=== PATIENT | female | born 1950 | race Caucasian/White ===

== ENCOUNTER 2023-08-18 00:48 | Emergency (ER) | payer MEDICARE, BC, SELFPAY ==
[2023-08-18 00:50] VITALS: BP 148/101
[2023-08-18 01:13] VITALS: BP 145/91
--- NOTE | 2023-08-18 01:30 | ED.GENMED ---
History of Present Illness
General
Chief Complaint: Heart Rate Problem
Time Seen by Provider: 08/18/23 01:24
Travel History
Have you had any contact with someone who has COVID-19?: No
Do you have any symptoms of coronavirus? Fever > 100 degrees, chills, cough, shortness of breath, sore throat, loss of taste or smell, muscle aches, or headache?: No
History of Present Illness
History of Present Illness:
HPI: The patient presents due to palpitations that started around 10 PM (about 3 hours ago). She was going to have an ablation in the past at [facility] for PVCs however after she stopped the verapamil that she was on for PVCs there were no significant
amount of PVCs seen so the ablation was never done. They did give her a prescription for low-dose verapamil to take if she ever has palpitations again. She did take a dose of verapamil tonight.
EXAM:
GENERAL: Well appearing in no distress
HEENT: Moist oral mucosa
CARDIOVASCULAR: No murmurs, normal heart rate, regular rhythm, No chest wall tenderness
PULMONARY: No respiratory distress, breath sounds are clear and equal
ABDOMEN: Soft with no peritoneal signs, no tenderness
NEUROLOGIC: Excellent strength all extremities, no coordination deficits
PSYCHIATRIC: Appropriate mental status, normal insight and judgement
EXTREMITIES: Nontender, no edema, moves all extremities equally
SKIN: No rash, no lesions
TIME OF INITIAL ENCOUNTER: 1:30 AM
NUMBER AND COMPLEXITY OF PROBLEMS ADDRESSED AT THE ENCOUNTER
� Chronic conditions affecting care: Frequent PVCs, high blood pressure, diverticular disease, anxiety
� Acute Exacerbation and/or Progression of Chronic Illness: This is an acute problem
� Differential Diagnosis includes: A-fib PVCs, electrolyte abnormality, anemia, dehydration
AMOUNT AND/OR COMPLEXITY OF DATA TO BE REVIEWED AND ANALYZED
� I performed an independent evaluation of and my interpretation is:
EKG: EKG #1 A-fib with a ventricular rate of 135. EKG #2 sinus rhythm with rate of 75, leftward axis, no acute ST abnormality
CT:
X-rays:
Laboratory Studies: White count 6.1, hemoglobin 13.3, chemistries relatively unremarkable, magnesium 2.3
Other:
� Review of other/old records: I reviewed lab work from January 2023 which was unremarkable
� Clinical information was obtained by an independent historian: None needed
� Prescriptions/Medications Considered but not given:
� Further testing considered but not performed:
RISK OF COMPLICATIONS AND/OR MORBIDITY OR MORTALITY OF PATIENT MANAGEMENT
� Social determinants of health affecting care: Lives at home, she is a nurse practitioner
� Discussion with other providers:
� Escalation of care including admission/observation vs risk of discharge considered: As patient is confirmed to be in atrial fibrillation and given patient's age and female gender, I recommended Eliquis. She has an elevated
[id number] score. She will also talk to her chief medical technologist at [facility] about this. I gave copies of her EKGs to take with her. On 08/20, I called patient to inform her of the low TSH and she has follow-up with [facility].
Phy Exam
Physical Exam
Physical Exam:
See HPI
Course
Orders/Labs/Results
Orders:
Orders
08/18/23 00:57
ECG [Electrocardiogram (*1)] Urgent
Reason for Study: Palpitations
EKG- Treatment ONCE
08/18/23 01:16
Electrocardiogram (*1) Urgent
Reason for Study: QTc Monitoring
EKG- Treatment ONCE
08/18/23 01:34
Basic Metabolic Panel Urgent
Complete Blood Count/With Diff Urgent
Magnesium Urgent
TSH Urgent
Abnormal Lab Results
08/18/23
01:34
RBC 4.11 L 10^6/uL
(4.20-5.40)
Hct 36.6 L %
(37.0-47.0)
MCH 32.4 H pg
(27.0-31.0)
Sodium 134 L mmol/L
(135-145)
Carbon Dioxide 21 L mmol/L
(22-30)
BUN 21 H mg/dl
(7-17)
Creatinine 0.5 L mg/dL
(0.6-1.0)
Glucose 102 H mg/dl
(70-99)
TSH 0.17 L uIU/ml
(0.47-4.68)
08/18/23 01:34
08/18/23 01:34
Vital Signs
Initial and Last Documented VS:
Initial Vital Signs
Temp Pulse Resp BP Pulse Ox
97.8 F 71 16 148/101 100
08/18/23 00:50 08/18/23 00:50 08/18/23 00:50 08/18/23 00:50 08/18/23 00:50
Last Documented Vital Signs
Temp Pulse Resp BP Pulse Ox
97.8 F 70 17 128/85 97
08/18/23 00:50 08/18/23 02:45 08/18/23 02:45 08/18/23 02:00 08/18/23 02:45
*Critical Care Note
Total Time (30-74mins, 75-104mins- exclusive of procedures): Not Applicable
ED Attending Note
-
Portions of this chart may have been created with voice recognition software.� Occasional wrong word or��sound alike� substitutions may have occurred due to the inherent limitations of voice recognition software.
Discharge Plan
Departure
Patient Disposition: Home (Routine Discharge)
Date of Disposition: 08/18/23
Time of Disposition: 02:36
Patient with high blood pressure during this ER visit?: Yes
Discharge Problem:
Atrial fibrillation
Instructions: Atrial Fibrillation (DC)
Prescriptions:
New
Eliquis 5 mg tablet
5 mg PO BID Qty: 60 0RF
No Action
amlodipine 5 mg tablet
5 mg PO DAILY Qty: 14 0RF
Referrals:
Kyaw Gama MD [Family Provider] -
Activity Restrictions/Additional Instructions:
Your initial EKG clearly shows signs of atrial fibrillation. Without any other intervention (other than the verapamil that you took earlier), you converted to a sinus rhythm. Basic blood work is unremarkable. Return here if worse. Follow-up with
your cardiologists.
Interventions
Interventions:
*Risk Screen - Suicide Last Done: 08/18/23 00:50
*General Assessment Last Done: 08/18/23 02:00
*Neglect/Abuse Screening Last Done: 08/18/23 00:50
ED- Fall Risk Assessment Last Done: 08/18/23 01:30
*ED COVID-19 Vaccine History Last Done: 08/18/23 00:50
*Nursing Disposition Last Done: 08/18/23 02:52
ED- Cardiac Assessment Last Done: 08/18/23 01:30
ED- Pulmonary Assessment Last Done: 08/18/23 01:30
Discharge Date and Time
Discharge Date/Time: 08/18/23 02:53
Print Language: [email or web address]
[2023-08-18 01:41] LABS: % Basophils 0.7 % (0-2); % Eosinophils 2.6 % (0-6); % Immature Granulocytes 0.2 % (0-0.5); % Lymphocytes 27.9 % (20.5-51.1); % Monocytes 6.7 % (1.7-9.3); % Neutrophils 61.9 % (42.2-75.2); Absolute Eosinophils 0.2 10^3/uL (0-0.7); Absolute Lymphocytes 1.7 10^3/uL (1.2-3.4); Absolute Monocytes 0.4 10^3/uL (0.1-0.6); Absolute Neutrophils 3.8 10^3/uL (1.4-6.5); Hematocrit 36.6 % (37.0-47.0); Hemoglobin 13.3 g/dL (12.0-16.0); Mean Corp Hgb Conc. 36.3 g/dL (33.0-37.0); Mean Corpuscular Hgb 32.4 pg (27.0-31.0); Mean Corpuscular Volume 89.1 fL (81.0-99.0); Mean Platelet Volume 8.9 fL (7.4-10.4); Nucleated Red Blood Cells % 0 %; Platelet Count 351 10^3/uL (130-400); Red Blood Cell Count 4.11 10^6/uL (4.20-5.40); Red Cell Dist. Width 12.4 % (11.5-14.5); White Blood Cell Count 6.1 10^3/uL (4.8-10.8)
[2023-08-18 02:00] VITALS: BP 128/85
[2023-08-18 02:05] LABS: Blood Urea Nitrogen 21 mg/dl (7-17); Calcium 10.1 mg/dl (8.4-10.2); Carbon Dioxide 21 mmol/L (22-30); Chloride 101 mmol/L (98-107); Glucose 102 mg/dl (70-99); Magnesium 2.3 mg/dl (1.6-2.3); Sodium 134 mmol/L (135-145); eGFR > 60.00
[2023-08-18 03:03] LABS: TSH 0.17 uIU/ml (0.47-4.68)
== END 2023-08-18 02:53 | disposition home or self-care (01) ==
LOC: EMR 00:48
PROVIDERS: EMERGENCY PHYSICIAN Emergency Medicine; FAMILY PHYSICIAN Family Medicine
DX: I48.91 Unspecified atrial fibrillation (principal); R03.0 Elevated blood-pressure reading, without diagnosis of hypertension; Z79.01 Long term (current) use of anticoagulants; Z88.1 Allergy status to other antibiotic agents
CPT/HCPCS: 99284; 80048; 83735; 84443; 85025; 93005

== ENCOUNTER → 2023-08-23 08:13 | Outpatient (REF) | payer MEDICARE, BC, SELFPAY ==
[2023-08-24 16:23] LABS: TSH Receptor Antibody <1.10 IU/L (<=1.75)
== END ==
LOC: REG 08:13
PROVIDERS: ATTENDING PHYSICIAN Family Medicine
DX: I48.91 Unspecified atrial fibrillation (principal); R79.89 Other specified abnormal findings of blood chemistry
CPT/HCPCS: 36415; 83520; 84439

== ENCOUNTER → 2024-07-03 13:36 | Outpatient (REF) | payer MEDICARE, BC, SELFPAY | LOC: HWRAD 13:36 | PROVIDERS: ATTENDING PHYSICIAN Family Medicine | DX: Z78.0 Asymptomatic menopausal state (principal); Z12.31 Encounter for screening mammogram for malignant neoplasm of breast | CPT/HCPCS: 77063; 77067; 77080 ==

== ENCOUNTER → 2024-09-02 08:43 | Outpatient (REF) | payer MEDICARE, BC, SELFPAY ==
[2024-09-02 09:48] LABS: % Basophils 0.5 % (0-2); % Eosinophils 0.2 % (0-6); % Lymphocytes 32.9 % (20.5-51.1); % Monocytes 8.5 % (1.7-9.3); % Neutrophils 57.9 % (42.2-75.2); Absolute Lymphocytes 1.3 10^3/uL (1.2-3.4); Absolute Monocytes 0.3 10^3/uL (0.1-0.6); Absolute Neutrophils 2.3 10^3/uL (1.4-6.5); Hematocrit 39.6 % (37.0-47.0); Hemoglobin 13.2 g/dL (12.0-16.0); Mean Corp Hgb Conc. 33.3 g/dL (33.0-37.0); Mean Corpuscular Hgb 31.9 pg (27.0-31.0); Mean Corpuscular Volume 95.7 fL (81.0-99.0); Nucleated Red Blood Cells % 0 %; Platelet Count 360 10^3/uL (130-400); Red Blood Cell Count 4.14 10^6/uL (4.20-5.40); Red Cell Dist. Width 12.4 % (11.5-14.5)
[2024-09-02 10:01] LABS: ALT (SGPT) 30 U/L (0-35); AST (SGOT) 29 U/L (14-36); Albumin 4.7 g/dl (3.5-5.0); Alkaline Phosphatase 61 U/L (38-126); Blood Urea Nitrogen 26 mg/dl (7-17); Calcium 9.5 mg/dl (8.4-10.2); Carbon Dioxide 26 mmol/L (22-30); Chloride 103 mmol/L (98-107); Glucose 86 mg/dl (70-99); HDL Cholesterol 87 mg/dl; LDL Cholesterol, Calculated 129 mg/dl; Potassium 4.6 mmol/L (3.5-5.1); Sodium 138 mmol/L (135-145); Total Bilirubin 0.5 mg/dl (0.2-1.3); Total Cholesterol 228 mg/dl (50-199); Total Protein 7.2 g/dl (6.3-8.2); Triglyceride 62 mg/dl (10-149); Very Low Density Lipoprotein 12 mg/dl (0-30); eGFR > 60.00
[2024-09-02 10:30] LABS: TSH Reflex To Free T4 0.02 uIU/ml (0.47-4.68)
[2024-09-02 10:59] LABS: Free T4 1.17 ng/dl (0.78-2.19)
[2024-09-02 11:20] LABS: Glycohemoglobin (HgbA1c) 5.5 % (4.0-5.6)
[2024-09-02 18:57] LABS: Hepatitis C Antibody Negative (Negative)
== END ==
LOC: REG 08:43
PROVIDERS: ATTENDING PHYSICIAN Family Medicine
DX: R79.9 Abnormal finding of blood chemistry, unspecified (principal); Z01.89 Encounter for other specified special examinations; Z79.899 Other long term (current) drug therapy
CPT/HCPCS: 36415; 80053; 80061; 83036; 84439; 84443; 85025; 86803

== ENCOUNTER → 2024-10-07 10:41 | Outpatient (REF) | payer MEDICARE, BC, SELFPAY ==
[2024-10-07 11:30] LABS: % Basophils 0.3 % (0-2); % Immature Granulocytes 0.2 % (0-0.5); % Lymphocytes 14.6 % (20.5-51.1); % Monocytes 6.9 % (1.7-9.3); Absolute Lymphocytes 1.5 10^3/uL (1.2-3.4); Absolute Monocytes 0.7 10^3/uL (0.1-0.6); Hematocrit 37.5 % (37.0-47.0); Hemoglobin 12.7 g/dL (12.0-16.0); Mean Corp Hgb Conc. 33.9 g/dL (33.0-37.0); Mean Corpuscular Hgb 32.4 pg (27.0-31.0); Mean Corpuscular Volume 95.7 fL (81.0-99.0); Mean Platelet Volume 8.6 fL (7.4-10.4); Nucleated Red Blood Cells % 0 %; Platelet Count 382 10^3/uL (130-400); Red Blood Cell Count 3.92 10^6/uL (4.20-5.40); Red Cell Dist. Width 13.1 % (11.5-14.5); White Blood Cell Count 10.2 10^3/uL (4.8-10.8)
[2024-10-07 12:27] LABS: TSH 1.16 uIU/ml (0.47-4.68)
== END ==
LOC: REG 10:41
PROVIDERS: ATTENDING PHYSICIAN Family Medicine
DX: R79.89 Other specified abnormal findings of blood chemistry (principal); Z79.899 Other long term (current) drug therapy
CPT/HCPCS: 36415; 84443; 85025